=== PATIENT | female | born 2000 | race Asian ===

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

== ENCOUNTER 2020-12-21 18:01 | Emergency (ER) | payer OTHER ==
[~2020-12-21] VITALS: Ht 157.5 cm; Wt 78.5 kg
[2020-12-21 19:30] VITALS: BP 117/68; TEMP 98.3
== END 2020-12-21 19:30 | disposition home or self-care (01) ==
LOC: ED 18:01
DX: J06.9 Acute upper respiratory infection, unspecified (principal); Z20.822 Contact with and (suspected) exposure to COVID-19; F17.210 Nicotine dependence, cigarettes, uncomplicated
CPT/HCPCS: 87635; 87651; 99283; U0003